=== PATIENT | female | born 1980 | race African-American/Black ===

== ENCOUNTER 2017-11-14 04:25 | Emergency (ER) | payer SELFPAY ==
[~2017-11-14] VITALS: Ht 162.6 cm; Wt 91.0 kg
[2017-11-14 07:28] VITALS: BP 158/114
== END 2017-11-14 07:46 | disposition home or self-care (01) ==
LOC: ER 04:52
DX: R42 Dizziness and giddiness (principal); I10 Essential (primary) hypertension; F12.10 Cannabis abuse, uncomplicated; F19.10 Other psychoactive substance abuse, uncomplicated; V49.88XA Car occupant (driver) (passenger) injured in other specified transport accidents, initial encounter; Y93.89 Activity, other specified; Y92.410 Unspecified street and highway as the place of occurrence of the external cause; Y99.8 Other external cause status
CPT/HCPCS: 99283